=== PATIENT | female | born 1950 | race Two or more races ===

== ENCOUNTER 2022-05-03 10:13 | Emergency (ER) | payer OTHER ==
[~2022-05-03] VITALS: Ht 165.1 cm; Wt 63.5 kg
[2022-05-03] MEDS ORDERED: ZESTRIL20 MG PO (10:37)
[2022-05-03] MEDS ORDERED: GLIMEPIRIDE2 MG PO (10:38)
[2022-05-03] MEDS ORDERED: NORVASC5 MG PO (10:38)
[2022-05-03] MEDS ORDERED: LIPITOR20 MG PO (10:38)
== END 2022-05-03 12:52 | disposition home or self-care (01) ==
LOC: ER 10:13
DX: K52.9 Noninfective gastroenteritis and colitis, unspecified (principal); I10 Essential (primary) hypertension; E11.9 Type 2 diabetes mellitus without complications

== ENCOUNTER 2022-11-20 06:52 | Emergency (ER) | payer OTHER ==
[~2022-11-20] VITALS: Ht 162.6 cm; Wt 80.3 kg
[~2022-11-20 06:52] MED LIST: GLIMEPIRIDE2 MG PO; LIPITOR20 MG PO; NORVASC5 MG PO; ZESTRIL20 MG PO
== END 2022-11-20 07:50 | disposition home or self-care (01) ==
LOC: ER 06:52
DX: H81.10 Benign paroxysmal vertigo, unspecified ear (principal)